=== PATIENT | male | born 1980 | race African-American/Black ===

== ENCOUNTER 2018-05-19 08:32 | Emergency (ER) | payer BC ==
[~2018-05-19] VITALS: Ht 185.4 cm; Wt 245.0 kg
[2018-05-19 14:50] VITALS: BP 145/68
== END 2018-05-19 14:55 | disposition home or self-care (01) ==
LOC: ER 08:32
DX: M79.672 Pain in left foot (principal); I11.0 Hypertensive heart disease with heart failure; I50.9 Heart failure, unspecified; Z87.81 Personal history of (healed) traumatic fracture
CPT/HCPCS: 73630; 93970; 99284

== ENCOUNTER 2018-06-18 21:20 | Inpatient (IN) | payer BC ==
[~2018-06-18] VITALS: Ht 182.9 cm; Wt 239.5 kg
[2018-06-18] MEDS ORDERED: ASPIRIN 81MG TABLET PO ONE (23:00)
[2018-06-18 23:19] LABS: BASOPHILS % 0.8 % (0.0-2.0); EOSINOPHILS % 3.1 % (0.0-5.0); HEMATOCRIT. 39.2 % (42.0-52.0); HEMOGLOBIN. 12.1 g/dL (14.0-18.0); MEAN CORPUSCULAR HEMOGLOBIN 23.1 pg (28.0-32.0); MEAN CORPUSCULAR VOLUME 74.6 fL (80.0-94.0); MEAN PLATELET VOLUME 7.7 fl (7.4-10.4); MONOCYTES % 7.3 % (2.0-8.0); NEUTROPHILS % 71.8 % (40.0-76.0); PLATELET 391 x1000/uL (130-400); RED BLOOD CELL COUNT 5.25 mill/uL (4.7-6.1); RED CELL DISTRIBUTION WIDTH 15.2 % (11.6-14.6)
[2018-06-18 23:23] LABS: CHLORIDE 106 mEq/L (98-107)
[2018-06-18 23:26] LABS: PARTIAL THROMBOPLASTIN TIME 28.3 sec (23.4-31.0)
[2018-06-19] MEDS ORDERED: NITROGLYCERIN OINT 1GM/INCH UDPKT TD ONE (01:15)
[2018-06-19] MEDS ORDERED: FUROSEMIDE 40MG/4ML VIAL IV ONE (01:15)
[2018-06-19] MEDS ORDERED: HYDRALAZINE 20MG/ML VIAL IV PRN (06:45)
[2018-06-19] MEDS ORDERED: IPRATROPIUM/ALBUTEROL 0.5-3(2.5)MG/3ML NEB INH PRN (06:45)
[2018-06-19] MEDS ORDERED: HYDROCODONE/ACETAMINOPHEN 10/325MG TABLET PO PRN (06:45)
[2018-06-19] MEDS ORDERED: ACETAMINOPHEN 325MG TABLET PO PRN (06:45)
[2018-06-19] MEDS ORDERED: GUAIFENESIN 200MG/10ML SUGAR FREE UDC PO PRN (06:45)
[2018-06-19] MEDS ORDERED: ONDANSETRON HCL 4MG/2ML INJ IV PRN (06:45)
[2018-06-19] MEDS ORDERED: LORAZEPAM 2MG/ML CPJ IV PRN (06:45)
[2018-06-19] MEDS ORDERED: MAGNESIUM/ALUMINUM HYDROXIDE/SIMETHICONE 30ML UDC PO PRN (06:45)
[2018-06-19] MEDS ORDERED: DOCUSATE SODIUM 100MG CAPSULE PO PRN (06:45)
[2018-06-19] MEDS ORDERED: ENOXAPARIN 40MG/0.4ML SYR SUBCUT SCH (06:45)
[2018-06-19] MEDS ORDERED: CLONIDINE 0.1MG TABLET PO PRN (06:45)
[2018-06-19] MEDS ORDERED: DIPHENHYDRAMINE 50MG/ML VIAL IV PRN (06:45)
[2018-06-19 08:00] VITALS: BP 142/92
[2018-06-19] MEDS ORDERED: FUROSEMIDE 40MG/4ML VIAL IVP SCH (09:00)
[2018-06-19] MEDS: ASPIRIN 81MG EC TABLET PO SCH (11:43)
[2018-06-19] MEDS: ENOXAPARIN 40MG/0.4ML SYR SUBCUT SCH ×2 (11:46→22:18)
[2018-06-19 12:42] VITALS: BP 142/92
[2018-06-19] MEDS: SODIUM CHLORIDE 0.45% 1,000 ML IV SCH (15:01)
[2018-06-19] MEDS: SODIUM CHLORIDE 0.9% INJ 3ML FLUSH IVF SCH ×2 (15:04→22:19)
[2018-06-19 16:00] VITALS: BP 140/86
[2018-06-19 16:14] LABS: CREATINE KINASE 76 IU/L (39-308)
[2018-06-19 16:15] LABS: CREATINE KINASE MB FRACTION < 1.0 ng/mL (0.5-3.6)
[2018-06-19 16:56] LABS: CLARITY URINE CLEAR (CLEAR); COLOR URINE YELLOW (YELLOW); KETONES URINE NEGATIVE (NEGATIVE); LEUKOCYTE ESTERASE URINE NEGATIVE (NEGATIVE); NITRITE URINE NEGATIVE (NEGATIVE); OCCULT BLOOD URINE NEGATIVE (NEGATIVE); PROTEIN URINE 2+ (NEGATIVE); SPECIFIC GRAVITY URINE 1.011 (1.005-1.030); UROBILINOGEN URINE 0.2 E.U./dL (0.2-1.0)
[2018-06-19] MEDS ORDERED: FURO80TA87 MT (18:41)
[2018-06-19] MEDS ORDERED: SPIR25TA6 MT (18:41)
[2018-06-19] MEDS ORDERED: AMLO10TA80 MT (18:41)
[2018-06-19] MEDS ORDERED: ASPI-1159 MT (18:41)
[2018-06-19] MEDS ORDERED: LISI40TA4 MT (18:41)
[2018-06-19] MEDS ORDERED: CARV25TA47 MT (18:41)
[2018-06-19 20:00] VITALS: BP 186/111
[2018-06-19] MEDS: NYSTATIN POWDER 15GM TOP SCH (22:19)
[2018-06-19 23:09] LABS: CREATINE KINASE 72 IU/L (39-308)
[2018-06-19 23:10] LABS: CREATINE KINASE MB FRACTION < 1.0 ng/mL (0.5-3.6)
[2018-06-20] VITALS: BP 167/91
[2018-06-20 04:00] VITALS: BP 139/74
[2018-06-20] MEDS: SODIUM CHLORIDE 0.9% INJ 3ML FLUSH IVF SCH ×3 (06:04→21:22)
[2018-06-20] MEDS: SODIUM CHLORIDE 0.45% 1,000 ML IV SCH (06:04)
[2018-06-20 07:15] LABS: BASOPHILS % 0.5 % (0.0-2.0); HEMATOCRIT. 36.1 % (42.0-52.0); HEMOGLOBIN. 10.9 g/dL (14.0-18.0); MEAN CORPUSCULAR HEMOGLOBIN 22.8 pg (28.0-32.0); MEAN CORPUSCULAR VOLUME 75.3 fL (80.0-94.0); MEAN PLATELET VOLUME 8.3 fl (7.4-10.4); MONOCYTES % 9.9 % (2.0-8.0); NEUTROPHILS % 66.6 % (40.0-76.0); PLATELET 314 x1000/uL (130-400); RED BLOOD CELL COUNT 4.79 mill/uL (4.7-6.1)
[2018-06-20 08:00] VITALS: BP 165/77
[2018-06-20] MEDS: ASPIRIN 81MG EC TABLET PO SCH (08:45)
[2018-06-20] MEDS: ENOXAPARIN 40MG/0.4ML SYR SUBCUT SCH ×2 (08:45→21:23)
[2018-06-20] MEDS: NYSTATIN POWDER 15GM TOP SCH ×3 (08:45→18:35)
[2018-06-20] MEDS: CARVEDILOL 3.125 MG TABLET PO SCH ×2 (09:37→21:22)
[2018-06-20] MEDS: LOSARTAN POTASSIUM 25 MG TABLET PO SCH (09:37)
[2018-06-20] MEDS: HYDROMORPHONE HCL/PF 2MG/ML CPJ IV PRN ×3 (09:38→21:23)
[2018-06-20 09:40] LABS: CHLORIDE 105 mEq/L (98-107)
[2018-06-20 09:49] LABS: HDL CHOLESTEROL 36 mg/dL (40-59)
[2018-06-20 09:52] LABS: LDL CHOLESTEROL 83 mg/dL (5-100)
[2018-06-20 09:55] LABS: T4 FREE 0.91 ng/dL (0.76-1.46)
[2018-06-20 12:00] VITALS: BP 160/80
[2018-06-20 16:00] VITALS: BP 160/89
[2018-06-20 20:00] VITALS: BP 153/88
[2018-06-21] VITALS: BP 149/80
[2018-06-21] MEDS: SODIUM CHLORIDE 0.45% 1,000 ML IV SCH (01:22)
[2018-06-21] MEDS: HYDROMORPHONE HCL/PF 2MG/ML CPJ IV PRN (03:27)
[2018-06-21 04:00] VITALS: BP 163/87
[2018-06-21 05:52] LABS: BASOPHILS % 0.4 % (0.0-2.0); EOSINOPHILS % 3.7 % (0.0-5.0); HEMATOCRIT. 33.9 % (42.0-52.0); HEMOGLOBIN. 10.4 g/dL (14.0-18.0); LYMPHOCYTES % 21.4 % (20.0-50.0); MEAN CORPUSCULAR HEMOGLOBIN 23.1 pg (28.0-32.0); MEAN CORPUSCULAR VOLUME 75.7 fL (80.0-94.0); MEAN PLATELET VOLUME 8.1 fl (7.4-10.4); MONOCYTES % 10.7 % (2.0-8.0); NEUTROPHILS % 63.8 % (40.0-76.0); PLATELET 314 x1000/uL (130-400); RED BLOOD CELL COUNT 4.48 mill/uL (4.7-6.1); RED CELL DISTRIBUTION WIDTH 15.1 % (11.6-14.6)
[2018-06-21] MEDS: SODIUM CHLORIDE 0.9% INJ 3ML FLUSH IVF SCH (06:29)
[2018-06-21 08:00] VITALS: BP 176/91
[2018-06-21] MEDS: NYSTATIN POWDER 15GM TOP SCH (09:00)
[2018-06-21] MEDS: ENOXAPARIN 40MG/0.4ML SYR SUBCUT SCH (09:35)
[2018-06-21] MEDS: LOSARTAN POTASSIUM 25 MG TABLET PO SCH (09:35)
[2018-06-21] MEDS: ASPIRIN 81MG EC TABLET PO SCH (09:35)
[2018-06-21] MEDS: CARVEDILOL 3.125 MG TABLET PO SCH (09:35)
[2018-06-21 10:02] VITALS: BP 159/88
== END 2018-06-21 10:35 | disposition home or self-care (01) | DRG 682 ==
LOC: ER 21:20 → 5WST 06-19 02:14 → ENRESERV 06-19 06:49
PROVIDERS: ADMIT Internal Medicine; ATTEND Internal Medicine
PROC: 5A09357 Assistance with Respiratory Ventilation, Less than 24 Consecutive Hours, Continuous Positive Airway Pressure (ICD-10-PCS; principal; 2018-06-19)
PROC: 5A09357 Assistance with Respiratory Ventilation, Less than 24 Consecutive Hours, Continuous Positive Airway Pressure (ICD-10-PCS; 2018-06-20)
PROC: 5A09357 Assistance with Respiratory Ventilation, Less than 24 Consecutive Hours, Continuous Positive Airway Pressure (ICD-10-PCS; 2018-06-21)
DX: N17.0 Acute kidney failure with tubular necrosis (principal); J96.00 Acute respiratory failure, unspecified whether with hypoxia or hypercapnia; I50.23 Acute on chronic systolic (congestive) heart failure; E66.2 Morbid (severe) obesity with alveolar hypoventilation; I13.0 Hypertensive heart and chronic kidney disease with heart failure and stage 1 through stage 4 chronic kidney disease, or unspecified chronic kidney disease; I42.9 Cardiomyopathy, unspecified; Z68.45 Body mass index [BMI] 70 or greater, adult; D72.829 Elevated white blood cell count, unspecified; F17.210 Nicotine dependence, cigarettes, uncomplicated; F10.10 Alcohol abuse, uncomplicated; H54.62 Unqualified visual loss, left eye, normal vision right eye; N18.9 Chronic kidney disease, unspecified; N28.1 Cyst of kidney, acquired; Z79.899 Other long term (current) drug therapy; Z71.6 Tobacco abuse counseling
CPT/HCPCS: 36415; 71045; 76770; 80048; 80061; 82550; 82553; 83036; 83880; 84439; 84443; 84481; 84484; 85379; 93005; 93306; 93970; 96374; 96375; 99285; J1170; J1650; J1940

== ENCOUNTER 2019-03-03 18:52 | Emergency (ER) | payer BC ==
[~2019-03-03] VITALS: Ht 177.8 cm; Wt 236.0 kg
[~2019-03-03 18:52] MED LIST: AMLO10TA80 MT; ASPI-1393 MT; CARV25TA47 MT; FURO80TA87 MT; LISI40TA4 MT; SPIR25TA6 MT
[2019-03-03] MEDS ORDERED: KETOROLAC 60MG/2ML VIAL IM ONE (22:30)
[2019-03-03 22:35] VITALS: BP 179/88
== END 2019-03-03 23:49 | disposition home or self-care (01) ==
LOC: ER 18:52
DX: M25.522 Pain in left elbow (principal); I10 Essential (primary) hypertension; E66.01 Morbid (severe) obesity due to excess calories; F17.200 Nicotine dependence, unspecified, uncomplicated; Z88.1 Allergy status to other antibiotic agents; Z79.82 Long term (current) use of aspirin; Z79.899 Other long term (current) drug therapy; Z68.45 Body mass index [BMI] 70 or greater, adult
CPT/HCPCS: 73080; 96372; 99283; J1885; A4565

== ENCOUNTER 2020-03-02 04:28 | Emergency (ER) | payer BC, MEDICAID ==
[~2020-03-02] VITALS: Ht 185.4 cm; Wt 233.0 kg
[~2020-03-02 04:28] MED LIST changes: -ASPI-1393 MT; +ASPI-1497 MT
[2020-03-02] MEDS ORDERED: OXYCODONE HCL/ACETAMINOPHEN 5/325MG TABLET PO ONE (06:30)
[2020-03-02] MEDS ORDERED: KETOROLAC 60MG/2ML VIAL IM ONE (06:30)
[2020-03-02 09:34] VITALS: BP 150/90
== END 2020-03-02 09:35 | disposition home or self-care (01) ==
LOC: ER 04:28
DX: S42.402A Unspecified fracture of lower end of left humerus, initial encounter for closed fracture (principal); M25.422 Effusion, left elbow; I11.0 Hypertensive heart disease with heart failure; I50.9 Heart failure, unspecified; Z79.82 Long term (current) use of aspirin; Z87.828 Personal history of other (healed) physical injury and trauma; Z98.890 Other specified postprocedural states; Z88.3 Allergy status to other anti-infective agents; X58.XXXA Exposure to other specified factors, initial encounter; Y93.89 Activity, other specified; Y92.013 Bedroom of single-family (private) house as the place of occurrence of the external cause
CPT/HCPCS: 29105; 73080; 93971; 96372; 99284; J1885

== ENCOUNTER 2020-10-23 00:09 | Emergency (ER) | payer MEDICAID ==
[~2020-10-23] VITALS: Ht 188 cm; Wt 219.0 kg
[~2020-10-23 00:09] MED LIST changes: +HYDR100T26 PO; -LISI40TA4 MT; +METO5TAB7 PO
[2020-10-23] MEDS ORDERED: KETOROLAC 60MG/2ML VIAL IM ONE (03:30)
[2020-10-23] MEDS ORDERED: IBUP-2029 MT (05:46)
[2020-10-23 06:05] VITALS: BP 147/84
== END 2020-10-23 06:05 | disposition home or self-care (01) ==
LOC: ER 00:09
DX: S43.101A Unspecified dislocation of right acromioclavicular joint, initial encounter (principal); I11.0 Hypertensive heart disease with heart failure; I50.9 Heart failure, unspecified; X58.XXXA Exposure to other specified factors, initial encounter; Y93.89 Activity, other specified; Y92.89 Other specified places as the place of occurrence of the external cause; Y99.8 Other external cause status; Z79.899 Other long term (current) drug therapy; Z98.890 Other specified postprocedural states
CPT/HCPCS: 71045; 73030; 96372; 99284; J1885

== ENCOUNTER 2022-01-27 12:59 | Emergency (ER) | payer MEDICAID, OTHER ==
[~2022-01-27] VITALS: Ht 188 cm; Wt 194.5 kg
[~2022-01-27 12:59] MED LIST changes: +IBUP-2029 MT
[2022-01-27 17:19] LABS: BASOPHILS % 0.5 % (0.0-2.0); EOSINOPHILS % 1.4 % (0.0-5.0); HEMATOCRIT. 29.5 % (42.0-52.0); HEMOGLOBIN. 8.8 g/dL (14.0-18.0); LYMPHOCYTES % 11.1 % (20.0-50.0); MEAN CORPUSCULAR HEMOGLOBIN 22.9 pg (28.0-32.0); MEAN CORPUSCULAR VOLUME 76.5 fL (80.0-94.0); MEAN PLATELET VOLUME 7.2 fl (7.4-10.4); MONOCYTES % 10.6 % (2.0-8.0); NEUTROPHILS % 76.4 % (40.0-76.0); PLATELET 394 x1000/uL (130-400); RED BLOOD CELL COUNT 3.86 mill/uL (4.7-6.1); RED CELL DISTRIBUTION WIDTH 17.1 % (11.6-14.6)
[2022-01-27 17:26] LABS: CHLORIDE 103 mEq/L (98-107)
[2022-01-27 17:27] LABS: PROTHROMBIN TIME 11.1 sec (9.6-11.0)
[2022-01-27 17:40] LABS: ETHANOL BLOOD < 10 mg/dL
[2022-01-27 19:26] LABS: CLARITY URINE CLEAR (CLEAR); COLOR URINE YELLOW (YELLOW); KETONES URINE NEGATIVE (NEGATIVE); LEUKOCYTE ESTERASE URINE NEGATIVE (NEGATIVE); NITRITE URINE NEGATIVE (NEGATIVE); OCCULT BLOOD URINE NEGATIVE (NEGATIVE); PH URINE 7.5 (4.5-8.0); PROTEIN URINE 3+ (NEGATIVE); SPECIFIC GRAVITY URINE 1.014 (1.005-1.030); UROBILINOGEN URINE 0.2 E.U./dL (0.2-1.0)
[2022-01-27 19:41] LABS: *AMPHETAMINES SCREEN URINE NEGATIVE (NEGATIVE); *BARBITURATES SCREEN URINE NEGATIVE (NEGATIVE); *BENZODIAZEPINES SCREEN URINE NEGATIVE (NEGATIVE); *COCAINE SCREEN URINE NEGATIVE (NEGATIVE); CANNABINOID URINE SCREEN NEGATIVE (NEGATIVE); METHADONE URINE SCREEN NEGATIVE (NEGATIVE); OPIATES URINE SCREEN NEGATIVE (NEGATIVE); PHENCYCLIDINE URINE SCREEN NEGATIVE (NEGATIVE)
[2022-01-27 20:53] VITALS: BP 121/70
== END 2022-01-27 20:58 | disposition home or self-care (01) ==
LOC: ER 13:27 → CANBEDREQ 01-28 10:01
DX: R53.1 Weakness (principal); I13.2 Hypertensive heart and chronic kidney disease with heart failure and with stage 5 chronic kidney disease, or end stage renal disease; N18.6 End stage renal disease; I50.9 Heart failure, unspecified; Z88.3 Allergy status to other anti-infective agents; Z88.6 Allergy status to analgesic agent; Z99.2 Dependence on renal dialysis; Z79.82 Long term (current) use of aspirin; Z98.890 Other specified postprocedural states
CPT/HCPCS: 36415; 71045; 80053; 80305; 80320; 81003; 84443; 84484; 85025; 86850; 86900; 93005; 99285; G0480

== ENCOUNTER 2023-06-02 15:06 | Emergency (ER) | payer OTHER ==
[~2023-06-02] VITALS: Ht 185.4 cm; Wt 204.0 kg
[2023-06-02 15:27] VITALS: O2SAT 99
[2023-06-02 17:10] LABS: BASOPHILS % 0.4 % (0.0-2.0); DIFFERENTIAL COMMENT 0; HEMOGLOBIN. 10.4 g/dL (14.0-18.0); LYMPHOCYTES % 7.3 % (20.0-50.0); MEAN CORPUSCULAR HEMOGLOBIN 24.2 pg (28.0-32.0); MEAN CORPUSCULAR HGB CONC 30.6 g/dL (31.0-37.0); MEAN PLATELET VOLUME 7.1 fl (7.4-10.4); MONOCYTES % 8.9 % (2.0-8.0); NEUTROPHILS % 82.4 % (40.0-76.0); PLATELET 328 x1000/uL (130-400); RED CELL DISTRIBUTION WIDTH 18.5 % (11.6-14.6); WHITE BLOOD COUNT 14.4 x1000/uL (4.5-11.0)
[2023-06-02 17:20] LABS: ALANINE AMINOTRANSFERASE 9 IU/L (10-49); ALBUMIN 4.4 g/dL (3.2-4.8); ASPARTATE AMINOTRANSFERASE 9 IU/L (<34); BILIRUBIN TOTAL 0.7 mg/dL (0.1-1.0); CARBON DIOXIDE 26 mEq/L (21-32); CHLORIDE 95 mEq/L (98-107); GLUCOSE 93 mg/dL (70-105); POTASSIUM 4.6 mEq/L (3.5-5.1); PROTEIN TOTAL 8.1 g/dL (6.0-8.3); SODIUM 132 mEq/L (136-145); UREA NITROGEN BLOOD 52 mg/dL (9-23)
[2023-06-02 17:21] LABS: CREATININE 10.9 mg/dL (0.6-1.3)
[2023-06-02] MEDS ORDERED: DICYCLOMINE 10 MG/5 ML ORAL SYR PO STA (19:33)
[2023-06-02] MEDS: KETOROLAC 30MG/ML VIAL IV STA (21:56)
[2023-06-02] MEDS: ONDANSETRON HCL 4MG/2ML INJ IV STA (21:56)
[2023-06-02] MEDS: DICYCLOMINE HCL 10MG CAPSULE PO NR (21:58)
[2023-06-02] MEDS: MAGNESIUM/ALUMINUM HYDROXIDE/SIMETHICONE 30ML UDC PO STA (21:58)
[2023-06-02] MEDS: ONDANSETRON 4MG ODT PO STA (21:58)
[2023-06-02] MEDS: MAGNESIUM/ALUMINUM HYDROXIDE/SIMETHICONE 30ML UDC PO NR (21:58)
[2023-06-02] MEDS: ONDANSETRON 4MG ODT PO NR (21:59)
[2023-06-02] MEDS: FAMOTIDINE 20MG TABLET PO ONE (21:59)
[2023-06-02] MEDS: FAMOTIDINE 20MG TABLET PO NR (22:00)
[2023-06-02 22:18] LABS: CLARITY URINE CLEAR (CLEAR); COLOR URINE YELLOW (YELLOW); GLUCOSE URINE NEGATIVE (NEGATIVE); KETONES URINE NEGATIVE (NEGATIVE); LEUKOCYTE ESTERASE URINE TRACE (NEGATIVE); NITRITE URINE NEGATIVE (NEGATIVE); OCCULT BLOOD URINE NEGATIVE (NEGATIVE); PROTEIN URINE 3+ (NEGATIVE); SPECIFIC GRAVITY URINE 1.013 (1.005-1.030)
[2023-06-02 22:37] LABS: BACTERIA URINE NONE SEEN; RBC URINE NONE SEEN /hpf (0-2); SQUAMOUS EPITHELIAL CELL URINE 1+ /lpf (RARE/1+)
[2023-06-02 22:52] LABS: CREATINE KINASE 28 IU/L (46-171); LACTATE DEHYDROGENASE 208 IU/L (120-246)
[2023-06-02] MEDS: METRONIDAZOLE 500 MG PREMIX 100 ML IV ONE (23:49)
[2023-06-02] MEDS: SODIUM CHLORIDE 0.9% 1,000 ML IV ONE (23:49)
[2023-06-03] MEDS: CEFTRIAXONE 2GM/50ML 50 ML IV ONE (00:58)
[2023-06-03] MEDS: KETOROLAC 30MG/ML VIAL IV NR (01:13)
[2023-06-03] MEDS: ONDANSETRON HCL 4MG/2ML INJ IV NR (01:14)
[2023-06-03] MEDS: DIPHENHYDRAMINE 50MG/ML VIAL IV ONE (01:14)
[2023-06-03 01:53] VITALS: BP 159/89; PULSE 98; RESP 20; TEMP 98.6
== END 2023-06-03 02:15 | disposition short-term general hospital (02) ==
LOC: ER 15:06 → CANBEDREQ 06-03 09:53
DX: K57.92 Diverticulitis of intestine, part unspecified, without perforation or abscess without bleeding (principal); E87.1 Hypo-osmolality and hyponatremia; I13.0 Hypertensive heart and chronic kidney disease with heart failure and stage 1 through stage 4 chronic kidney disease, or unspecified chronic kidney disease; I50.9 Heart failure, unspecified; N18.6 End stage renal disease; Z99.2 Dependence on renal dialysis; Z98.890 Other specified postprocedural states; Z88.6 Allergy status to analgesic agent; Z88.8 Allergy status to other drugs, medicaments and biological substances
CPT/HCPCS: 99291; 74176; 96365; 80053; 81003; 82550; 83605; 83615; 83690; 85025; 87040; 87086; 36415; 71045; 99292; 96375; 96367; Q0162; J0696; J3490; J7030; J1200; J1885; J2405

== ENCOUNTER → 2024-10-01 | Outpatient (CLI) | payer MEDICARE, MEDICAID ==
[~2024-10-01] MED LIST changes: +HYDR100T11 PO; -HYDR100T26 PO
== END | disposition home or self-care (01) ==
LOC: NM 07:42
PROVIDERS: ATTEND Internal Medicine Nephrology
DX: E21.3 Hyperparathyroidism, unspecified (principal); E21.5 Disorder of parathyroid gland, unspecified; Z13.29 Encounter for screening for other suspected endocrine disorder
CPT/HCPCS: 78070; A9500